=== PATIENT | female | born 1985 | race African-American/Black ===

== ENCOUNTER 2018-11-22 08:18 | Emergency (ER) | payer BC, OTHER ==
[2018-11-22] MEDS ORDERED: Ondansetron ODT 4 MG TAB ONE (08:39)
== END 2018-11-22 08:47 | disposition home or self-care (01) ==
LOC: ERS 08:18
DX: R11.2 Nausea with vomiting, unspecified (principal); R19.7 Diarrhea, unspecified; F17.210 Nicotine dependence, cigarettes, uncomplicated
CPT/HCPCS: 99283; Q0162

== ENCOUNTER 2020-02-08 11:53 | Emergency (ER) | payer BC ==
[2020-02-08] MEDS ORDERED: Iopamidol-370 76% 500 ML 1 ML ONE (12:03)
--- NOTE | 2020-02-08 12:27 | RAD ---
RADIOGRAPH CHEST 1 VIEW: DATE: 02/08/2020 HISTORY: 34-year-old female with dyspnea and chest pain FINDINGS: The visualized lung gomez are clear. The cardiomediastinal silhouette and hilar shadows are normal. The lateral costophrenic angles are sharp. The osseous structures appear normal. There is no pneumothorax. IMPRESSION: Negative.
[2020-02-08 12:33] LABS: #Basophils 0.1 thou/uL (0.0-0.2); #Eosinphils 0.1 thou/uL (0.0-0.7); #Lymphocytes 2.2 thou/uL (1.20-3.40); #Monocytes 0.4 thou/uL (0.11-0.59); #Neutrophils 2.5 thou/uL (1.40-6.50); %Eosinophils 1.7 % (0.0-10.0); %Lymphocytes 41.4 % (21.0-51.0); %Monocytes 7.8 % (0.0-10.0); Hemoglobin 12.4 g/dL (12.0-16.0); Mean Corpuscular HGB CONC 34.6 g/dL (32.0-36.0); Mean Corpuscular Hemoglobin 29.4 pg (27.0-31.0); Platelet Count 270 thou/uL (130-400); Red Blood Cell (RBC) Count 4.21 mill/uL (4.20-5.40); White Blood Cell (WBC) Count 5.3 thou/uL (4.8-10.8)
[2020-02-08] MEDS ORDERED: Ketorolac Tromethamine 30 MG/ML VIAL ONE (12:34)
[2020-02-08 12:52] LABS: ALT (SGPT) 18 U/L (8-55); AST (SGOT) 21 U/L (5-34); Albumin 4.2 g/dL (3.5-5.0); Alkaline Phosphatase 76 U/L (40-110); Anion Gap 13 mmol/L (10-20); BUN (Urea Nitrogen) 12 mg/dL (7.0-18.7); Bilirubin, Total 0.2 mg/dL (0.2-1.2); CK (CPK) 443 U/L (29-168); Calc. Creatinine Clearance 0 mL/min (70-130); Calcium 9.7 mg/dL (7.8-10.44); Carbon Dioxide 23 mmol/L (22-29); Chloride 108 mmol/L (98-107); Estimated GFR-MDRD Greater than 90; Globulin 2.4 g/dL (2.4-3.5); Glucose 87 mg/dL (70-105); Lipase 51 U/L (8-78); Protein, Total 6.6 g/dL (6.0-8.3); Sodium 140 mmol/L (136-145)
--- NOTE | 2020-02-08 13:56 | CT ---
CT PULMONARY ANGIOGRAM WITH IV CONTRAST AND 3D POSTPROCESSING: HISTORY: Shortness of breath, chest pain. FINDINGS: There is good contrast opacification in the pulmonary arterial vasculature without filling defects to suggest pulmonary embolism. The thoracic aorta is well opacified without aneurysm or dissection. N o pneumothoraces or pleural or pericardial effusions are seen. No focal areas of consolidation, lung nodules, or masses are identified. There are mild dependent changes in the posterior lung bases. N o acute osseous abnormalities are seen. IMPRESSION: No CT evidence of pulmonary embolism. POS: [facility]
--- NOTE | 2020-02-09 14:24 | EKG ---
Test Reason : Blood Pressure : / mmHG Vent. Rate : 069 BPM Atrial Rate : 069 BPM P-R Int : 150 ms QRS Dur : 084 ms QT Int : 394 ms P-R-T Axes : 043 018 027 degrees QTc Int : 422 ms Normal sinus rhythm Normal ECG Confirmed by JOYCE MCCORD MD ([id number]), telegraph editor CLAUDIA JACKSON ([id number] on 02/09/2020 2:23:38 PM Referred By: Confirmed By:JOYCE MCCORD MD
== END 2020-02-08 14:00 | disposition home or self-care (01) ==
LOC: ERS 11:53
DX: R07.89 Other chest pain (principal); F17.210 Nicotine dependence, cigarettes, uncomplicated; F41.9 Anxiety disorder, unspecified
CPT/HCPCS: 36415; 71045; 71275; 80053; 82550; 83690; 84484; 85025; 85379; 93005; 96374; J1885; Q9967

== ENCOUNTER 2020-05-11 11:36 | Emergency (ER) | payer BC, OTHER ==
[2020-05-12 12:10] LABS: SARS-CoV-2 MS2 Positive; SARS-CoV-2 N Gene Negative; SARS-CoV-2 S Gene Negative; SARS-CoV-2 by NAA Not Detected (NotDetected); SARS-CoV-2 orf1ab Negative
== END 2020-05-11 11:47 | disposition home or self-care (01) ==
LOC: ERS 11:36
DX: J02.9 Acute pharyngitis, unspecified (principal); R51 Headache; F41.9 Anxiety disorder, unspecified; F17.210 Nicotine dependence, cigarettes, uncomplicated; Z20.828 Contact with and (suspected) exposure to other viral communicable diseases
CPT/HCPCS: 87635; 99284; U0003

== ENCOUNTER 2025-05-30 11:08 | Outpatient (CLI) | payer OTHER | END 2025-05-30 11:09 | disposition home or self-care (01) | LOC: BICMAMMO 11:08 | PROVIDERS: ATTEND Family Medicine | DX: Z12.31 Encounter for screening mammogram for malignant neoplasm of breast (principal); N64.89 Other specified disorders of breast; Z80.3 Family history of malignant neoplasm of breast | CPT/HCPCS: 77063; 77067 ==